=== PATIENT | male | born 1980 | race Two or more races ===

== ENCOUNTER 2017-08-30 02:05 | Emergency (ER) | payer MEDICAID ==
[~2017-08-30] VITALS: Ht 172.7 cm; Wt 99.8 kg
[2017-08-30 02:15] VITALS: BP 150/79
== END 2017-08-30 04:00 | disposition left against medical advice (07) ==
LOC: ER 02:09
DX: M79.605 Pain in left leg (principal); Z53.21 Procedure and treatment not carried out due to patient leaving prior to being seen by health care provider